=== PATIENT | male | born 1955 | race Caucasian/White ===

== ENCOUNTER 2023-01-25 08:33 | Day surgery (SDC) | payer MEDICARE, BC ==
[~2023-01-25 08:33] MED LIST: Lactated Ringers 1,000 ML IV SCH; ceFAZolin 2 GM in Sodium Chloride 0.9% 50 ML IV ONE
[2023-01-25] MEDS ORDERED: Ketorolac 30 MG/ML SDV ONE (09:04)
[2023-01-25] MEDS ORDERED: Lidocaine 2% 5 ML SDV ONE (09:04)
[2023-01-25] MEDS ORDERED: Rocuronium Bromide 50 MG/5 ML Syringe ONE (09:04)
[2023-01-25] MEDS ORDERED: Dexamethasone 4 MG/ML 5 ML MDV ONE (09:04)
[2023-01-25] MEDS ORDERED: Sugammadex Sodium 200 MG/2 ML VIAL ONE (09:04)
[2023-01-25] MEDS ORDERED: Ondansetron 4 MG/2 ML SDV ONE (09:04)
[2023-01-25] MEDS ORDERED: Propofol 200 MG/20 ML SDV ONE (09:05)
[2023-01-25] MEDS ORDERED: fentaNYL 100 MCG/2 ML SDV ONE (09:05)
[2023-01-25] MEDS ORDERED: droPERidol 5 MG/2 ML SDV IVPUSH PRN (09:07)
[2023-01-25] MEDS ORDERED: Naloxone 0.4 MG/ML SDV IVPUSH PRN (09:07)
[2023-01-25] MEDS ORDERED: fentaNYL 50 MCG/ML SDV IVPUSH PRN (09:07)
[2023-01-25] MEDS ORDERED: Ondansetron 4 MG/2 ML SDV IVPUSH PRN ×2 (09:07→10:44)
[2023-01-25] MEDS ORDERED: Morphine 2 MG/ML SYRINGE IVPUSH PRN (09:07)
[2023-01-25] MEDS ORDERED: HYDROmorphone 1 MG/ML Syringe IVPUSH PRN (09:07)
[2023-01-25] MEDS ORDERED: Metoclopramide 10 MG/2 ML SDV IVPUSH PRN (09:07)
[2023-01-25] MEDS ORDERED: Albuterol 0.083% 2.5 MG/3 ML Neb Soln NEB PRN (09:07)
[2023-01-25] MEDS ORDERED: Bupivacaine 0.5% 30 ML SDV ONE (09:14)
[2023-01-25] MEDS ORDERED: ceFAZolin 1 GM Vial ONE (09:51)
[2023-01-25] MEDS ORDERED: ePHEDrine 50 MG/ML SDV ONE (10:07)
[2023-01-25] MEDS ORDERED: Acetaminophen/HYDROcodone 325-5 MG Tab PO PRN (10:44)
[2023-01-25] MEDS ORDERED: Morphine 4 MG/ML Syringe IVPUSH PRN (10:44)
[2023-01-25] MEDS ORDERED: Lactated Ringers 1,000 ML IV SCH (10:45)
[2023-01-25 12:31] VITALS: BP 136/86; PULSE 74
== END 2023-01-25 12:10 | disposition home or self-care (01) ==
LOC: EDSEX → MW.SDS 08:33
PROVIDERS: ATTEND Surgery
DX: K42.0 Umbilical hernia with obstruction, without gangrene (principal); I10 Essential (primary) hypertension; K21.9 Gastro-esophageal reflux disease without esophagitis; Z87.891 Personal history of nicotine dependence; Z79.899 Other long term (current) drug therapy
CPT/HCPCS: 49592; J0665; J0690; J1100; J2704; J3010; J3490; J7120; J1885; J2405